=== PATIENT | male | born 1965 | race Caucasian/White ===

== ENCOUNTER 2024-03-08 13:24 | Inpatient (IN) ==
--- NOTE | 2024-03-08 13:58 | Emergency Department Note ---
Impression & Plan Non-ST elevation MT (NSTEMI), Coronary artery disease, Chest pain ED Provider Note NAME: CODEY WILSON II AGE: 58 SEX: M : 1965 ARRIVES VIA: Walk-In INFORMANT: Patient, ED PROVIDER(S): Paul Hollins DO CHIEF COMPLAINT: chest and back HPI: Patient is a 58-year-old male who presents to the ER for chest pain. He admits to previous STEMI with cath back in 1999. He notes this pain feels different. He was not feeling well this morning when he woke up and went to clean out of his car. With exertion he had worsening pain/bubble in his chest that goes through to the back. He admits to some shortness of breath. No arm or jaw pain. No belly pain. Denies any nausea, vomiting, or diarrhea. No dysuria, urgency, or frequency. He notes it is improving at this point. ADDITIONAL HISTORY OBTAINED: Per HPI Chronic Medical/Social Conditions Affecting Care: Per HPI PAST MEDICAL HISTORY:See Below PAST SURGICAL HISTORY:See Below FAMILY HISTORY:See Below SOCIAL HISTORY:See Below HOME MEDICATIONS:See Below ALLERGIES:See Below VITALS:See Below PHYSICAL EXAMINATION: GENERAL: Sitting up in bed, alert, well appearing, well nourished, no distress, non-toxic EYE EXAM: normal conjunctiva. OROPHARYNX: mucous membranes are moist LUNGS: Clear to auscultation. Normal chest wall mechanics HEART: no murmurs, S1 normal and S2 normal ABDOMEN: abdomen soft, non-tender, normo-active bowel sounds, no masses, no rebound or guarding. UPPER EXTREMITIES: upper extremities are grossly normal. LOWER EXTREMITIES: No pitting edema. Calves are equal bilaterally NEURO EXAM: Normal sensorium, cranial nerves II-XII grossly intact, normal speech, no gross weakness of arms, no gross weakness of legs. MEDICAL DECISION MAKING: Patient is a 58-year-old male who presents ER for the above-stated complaint. IV was established medicos obtained. Labs show no significant leukocytosis or anemia. INR unremarkable. BMP with LFTs bilirubin was unremarkable. Troponin was elevated. Upon arrival patient had subtle ST segment changes in the inferior leads as well as high lateral and septal. Repeat EKGs were obtained. I contacted cardiology Dr. Nicole as the patient's PCP was a [facility] doc. He recommended contacting Dr. Cantor and if unable to contact him calling a STEMI alert. I was able to contact interventional cardiology Dr. Quan who evaluate the patient at bedside. He took him emergently for catheterization. Patient was placed on a heparin drip and given a bolus. He received aspirin prior to arrival. He did receive fluids and nitro while here. He was updated bedside. Discussed case with the hospitalist for further evaluation. Consults/Care Managements Discussions: Per MDM Triage Nursing notes reviewed. Limited review of prior medical records performed Vital Signs: reviewed and remarkable for HTN Differential diagnosis: Cardiac ischemia, aortic dissection, pulmonary embolism, pneumothorax, pneumonia, pericarditis, myocarditis, esophageal rupture, GERD, cholecystitis, pancreatitis, musculoskeletal, as well as other pathologies. ER treatment provided: See below Diagnostics interpreted by me include EKG and cardiac monitoring as listed below: -Cardiac Monitoring: An order was placed for continuous cardiac monitoring. The monitor shows a rate of 80 with sinus rhythm. -ECG: Sinus rhythm rate 82 Normal axis No PVCs Nonspecific ST wave changes in the inferior leads with depressions in the high lateral leads QTc 448 EKG #2 Sinus rhythm rate of 70 Normal axis No PVCs ST segment elevations in the inferior leads with depression in the high lateral leads QTc 440 -Laboratory studies:Interpreted by me as stated above in MDM and shown below. Imaging studies: Xrays: As interpreted by me: Portable AP upright 1 view of the chest shows no focal trait CTs show: none Procedures:none Critical Care: I have personally spent 35 minutes of critical care time in the direct management of this patient. This includes bedside care, interpretation of diagnostic studies, and testing, discussion with consultants, patient, and family members, and other required patient management activities. This 35 minutes is in excess of all separately billable procedures. 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 Beliefs That Will Affect Care: None Current Living Situation: Spouse Other Information That Helps Us Care for You: No Feels Safe at Home: Yes Safety Concerns: Feels Safe At This Time Allergies Allergies Allergy/AdvReac Type Severity Reaction Status Date / Time No Known Allergies Allergy Unknown Unverified 06/16/18 15:29 Home Meds Home Medications Medication Instructions Recorded Confirmed aspirin 81 mg tablet,delayed 81 mg PO DAILY 06/16/18 06/16/18 release (Aspir-Low) citalopram 20 mg tablet (Celexa) 20 mg PO DAILY 06/16/18 06/16/18 clopidogrel 75 mg tablet (Plavix) 75 mg PO DAILY 06/16/18 06/16/18 ezetimibe 10 mg tablet (Zetia) 10 mg PO DAILY 06/16/18 06/16/18 fenofibrate micronized 134 mg 134 mg PO DAILY 06/16/18 06/16/18 capsule rosuvastatin 40 mg tablet (Crestor) 40 mg PO DAILY 06/16/18 06/16/18 sildenafil 50 mg tablet (Viagra) 50 mg PO UD PRN Unknown 06/16/18 06/16/18 Results & Data (ED) Vital Signs Vital Signs - 24 hr 03/08/24 13:33 03/08/24 13:38 03/08/24 13:38 Temperature 36.2 C L Temperature Source Skin Pulse Rate 89 Pulse Rate from SpO2 Sensor Pulse Rhythm Regular Pulse Strength Normal Respiratory Rate 18 Respiratory Effort / Characteristics Non-Labored Spontaneous Respiratory Depth Normal Blood Pressure 145/77 H Blood Pressure Mean 99 Pulse Oximetry 96 Oxygen Delivery Method Room Air Room Air Room Air Sepsis Recent Fever Within 48 Hours No Sepsis New/Unexplained Change in Mental Status N/A Sepsis Action Taken by Nursing No Action Required 03/08/24 14:15 03/08/24 14:16 03/08/24 14:18 Temperature Temperature Source Pulse Rate 84 85 84 Pulse Rate from SpO2 Sensor 83 82 Pulse Rhythm Pulse Strength Respiratory Rate 17 15 Respiratory Effort / Characteristics Respiratory Depth Blood Pressure 104/64 106/65 Blood Pressure Mean 77 78 Pulse Oximetry 93 93 Oxygen Delivery Method Sepsis Recent Fever Within 48 Hours Sepsis New/Unexplained Change in Mental Status Sepsis Action Taken by Nursing 03/08/24 14:20 03/08/24 14:21 03/08/24 14:24 Temperature Temperature Source Pulse Rate 79 67 Pulse Rate from SpO2 Sensor 81 65 Pulse Rhythm Pulse Strength Respiratory Rate 16 21 Respiratory Effort / Characteristics Respiratory Depth Blood Pressure 106/65 106/65 104/52 L Blood Pressure Mean 73 78 69 Pulse Oximetry 92 97 Oxygen Delivery Method Sepsis Recent Fever Within 48 Hours Sepsis New/Unexplained Change in Mental Status Sepsis Action Taken by Nursing 03/08/24 14:27 03/08/24 14:30 Temperature Temperature Source Pulse Rate 67 69 Pulse Rate from SpO2 Sensor 66 72 Pulse Rhythm Pulse Strength Respiratory Rate 13 15 Respiratory Effort / Characteristics Respiratory Depth Blood Pressure 98/63 L 108/76 Blood Pressure Mean 74 86 Pulse Oximetry 95 92 Oxygen Delivery Method Sepsis Recent Fever Within 48 Hours Sepsis New/Unexplained Change in Mental Status Sepsis Action Taken by Nursing Laboratory Data 03/08/24 13:46 03/08/24 13:46 Lab Results 03/08/24 03/08/24 Range/Units 13:46 15:00 WBC 7.90 (4.8-10.8) K/ul RBC 5.46 (4.70-6.10) M/uL Hgb 16.4 (14.0-18.0) g/dl Hct 47.1 (42.0-52.0) % MCV 86.3 (80.0-100.0) fL MCH 30.0 (25.0-34.0) pg MCHC 34.8 (32.0-36.0) g/dL RDW Std Deviation 40.6 (36.4-46.3) fL RDW Coeff of Nicholas 13.0 (11.5-14.5) % Plt Count 188 (130-400) K/uL MPV 10.3 (9.4-12.4) fL Immature Gran % (Auto) 0.5 % Neut % (Auto) 64.0 % Lymph % (Auto) 18.5 % [place] % (Auto) 7.3 % Eos % (Auto) 8.6 % Baso % (Auto) 1.1 % Neut # (Auto) 5.05 (1.40-6.50) K/uL Lymph # (Auto) 1.46 (1.20-3.40) K/uL [place] # (Auto) 0.58 (0.11-0.59) K/uL Eos # (Auto) 0.68 H (0.00-0.50) K/uL Baso # (Auto) 0.09 (0.00-0.20) K/uL Immature Gran # (Auto) 0.04 (0.01-0.20) K/uL PT 10.7 (9.0-12.0) Seconds INR 1.0 (0.9-1.1) APTT 25 (21-31) Seconds PTT Ratio 0.9 Sodium 140 (136-145) mmol/L Potassium 4.4 (3.5-5.1) mmol/L Chloride 106 (98-107) mmol/L Carbon Dioxide 24 (21-32) mmol/L Anion Gap 10 (3-11) BUN 21 (6-23) mg/dl Creatinine 1.26 (0.6-1.4) mg/dl Est Cr Clr Drug Dosing 75.6 ml/min eGFR 66.94 BUN/Creatinine Ratio 16.7 (10-20) Glucose 116 H (70-99(Fasting)) mg/dl Calcium 10.0 (8.6-10.3) mg/dl Total Bilirubin 0.6 (0.2-1.0) mg/dl AST 28 (13-39) U/L ALT 28 (7-52) U/L Alkaline Phosphatase 65 (34-104) U/L Troponin I High Sens 11.1 51.1 H* D (0-20) pg/ml Total Protein 7.6 (6.0-8.3) gm/dl Albumin 4.8 (3.4-5.0) gm/dl Globulin 2.8 (2.5-4.0) gm/dl Albumin/Globulin Ratio 1.7 (0.9-2) Administered Medications Discontinued Medications Aspirin (Aspirin 81 Mg Chew) 162 mg PO NOW STA Stop: 03/08/24 15:05 Last Admin: 03/08/24 17:54 Dose: 162 mg Documented By: SOLEDAD Aspirin (Aspirin 81 Mg Ectab) 81 mg PO NOW STA Stop: 03/08/24 16:37 Last Admin: 03/08/24 17:28 Dose: Not Given Documented By: SOLEDAD Fentanyl Citrate (Fentanyl Citrate Pf 100 Mcg/2 Ml Vial) Confirm Administered Dose 100 mcg .ROUTE .STK-MED ONE Stop: 03/08/24 15:10 Last Increment: 03/08/24 16:29 Dose: 75 mcg Documented By: SELENA Heparin Sodium (Porcine) (Heparin Sod (Porcine) 1000 Unit/Ml) 4,000 units IV NOW ONE Stop: 03/08/24 14:46 Last Admin: 03/08/24 14:39 Dose: 4,000 units Documented By: GERALDO Co-signed By: MARIA INES Heparin Sodium (Porcine) (Heparin (Porcine) 1000 Unit/Ml 10 Ml (Child Watch Attendant Use Only)) Confirm Administered Dose 10,000 units .ROUTE .STK-MED ONE Stop: 03/08/24 15:10 Last Admin: 03/08/24 15:48 Dose: 6,500 units Documented By: SELENA Heparin Sodium/Dextrose (Heparin Iv Adult Wt-Based Low-Dose W/ Initial Bolus Protocol) 1 each IV Q15M [facility]; Protocol Stop: 03/08/24 16:16 Last Admin: 03/08/24 14:39 Dose: 1 each Documented By: GERALDO Heparin Sodium/Sodium Chloride (Heparin In Nss Infusion 1000 Unit/500 Ml (2 U/Ml) Bag) Confirm Administered Dose 3,000 units IV .STK-MED ONE Stop: 03/08/24 15:10 Last Admin: 03/08/24 15:47 Dose: 3,000 units Documented By: JENELLE Sodium Chloride (Nss) 1,000 mls @ 999 mls/hr IV .Q1H1M ONE Stop: 03/08/24 14:57 Last Infusion: 03/08/24 17:12 Dose: Infused Documented By: Admin: 03/08/24 14:02 Dose: 999 mls/hr Documented By: GERALDO Heparin Sodium/Dextrose (Heparin Sodium/Dextrose) 25,000 units in 500 mls @ 20 mls/hr IV .Q24H [facility]; Protocol Stop: 04/07/24 14:44 Last Titration: 03/08/24 17:03 Dose: Infused Documented By: SOLEDAD Co-signed By: CHRIS Admin: 03/08/24 14:38 Dose: 1,000 units/hr, 20 mls/hr Documented By: GERALDO Co-signed By: MARIA INES Ioversol (Optiray 350) Confirm Administered Dose 1 ml .ROUTE .STK-MED ONE Stop: 03/08/24 15:12 Last Admin: 03/08/24 16:30 Dose: 280 ml Documented By: JENELLE Metoclopramide HCl (Metoclopramide Hcl Inj 5 Mg/Ml 2 Ml Vial) 10 mg IV NOW STA Stop: 03/08/24 14:35 Last Admin: 03/08/24 15:02 Dose: Not Given Documented By: GERALDO Midazolam HCl (Midazolam Hcl 1 Mg/Ml 2ml Vial) Confirm Administered Dose 2 mg .ROUTE .STK-MED ONE Stop: 03/08/24 15:10 Last Admin: 03/08/24 16:30 Dose: 2 mg Documented By: SELENA Nicardipine HCl (Nicardipine Hcl Inj 2.5 Mg/Ml 10 Ml Amp) Confirm Administered Dose 25 mg .ROUTE .ST-MED ONE Stop: 03/08/24 15:10 Last Admin: 03/08/24 15:48 Dose: 25 mg Documented By: JENELLE Nitroglycerin (Nitroglycerin Sl 0.4 Mg/Tab Tab) 0.4 mg SL NOW STA Stop: 03/08/24 13:58 Last Admin: 03/08/24 14:02 Dose: 0.4 mg Documented By: GERALDO Nitroglycerin (Nitroglycerin Sl 0.4 Mg/Tab Tab) Confirm Administered Dose 0.4 mg .ROUTE .ST-MED ONE Stop: 03/08/24 13:59 Last Admin: 03/08/24 14:02 Dose: Not Given Documented By: GERALDO Nitroglycerin/Dextrose (Nitroglycerin/D5w 100mcg/Ml 20ml Syr) Confirm Administered Dose 2,000 mcg .ROUTE .ST-MED ONE Stop: 03/08/24 15:11 Last Admin: 03/08/24 15:48 Dose: 2,000 mcg Documented By: JENELLE Ondansetron HCl (Ondansetron Inj 2 Mg/Ml 2 Ml Vial) 4 mg IV NOW STA Stop: 03/08/24 14:11 Last Admin: 03/08/24 14:13 Dose: 4 mg Documented By: GERALDO Ondansetron HCl (Ondansetron Inj 2 Mg/Ml 2 Ml Vial) Confirm Administered Dose 4 mg .ROUTE .STK-MED ONE Stop: 03/08/24 14:12 Last Admin: 03/08/24 14:14 Dose: Not Given Documented By: GERALDO Ticagrelor (Ticagrelor 90 Mg Tab) Confirm Administered Dose 180 mg .ROUTE .STK- MED ONE Stop: 03/08/24 16:27 Last Admin: 03/08/24 16:35 Dose: 180 mg Documented By: SELEAN Imaging Data Radiologist's Impression: Chest X-Ray 03/08/24 13:38 XR chest 1V portable CLINICAL HISTORY: Chest pain, nonspecific COMPARISON STUDY: Chest radiograph June 16, 2018. FINDINGS: Mild elevation of the right hemidiaphragm has slightly increased. Lungs are clear. There is no pneumothorax or pleural effusion. Cardiac size is normal. Mediastinal contours are normal. There is no evidence for pulmonary edema. IMPRESSION: No acute cardiopulmonary findings. ACT 112: Negative or not required by law. Electronically signed by: Home Wolf M.D. 03/08/2024 2:15 PM Discharge Plan Visit Data Chief Complaint: Cardiac Assessment Stated Complaint: HISTORY OF HEART DISEASE, STINT, NAUSEA ED Provider: Paul Hollins Discharge Problem: Non-ST elevation MT (NSTEMI), Coronary artery disease, Chest pain Patient Disposition: Admitted As Inpatient Discharge Instructions Interventions: ED Discharge Assessment Last Done: 03/08/24 15:08 Discharge Problem: Coronary artery disease Qualifiers: Coronary Disease-Associated Artery/Lesion type: unspecified vessel or lesion type [place] vs. transplanted heart: unspecified whether [place] or transplanted heart Associated angina: unspecified whether angina present Qualified Code(s): I 25.10 - Atherosclerotic heart disease of [place] coronary artery without angina pectoris Chest pain Qualifiers: Chest pain type: unspecified Qualified Code(s): R07.9 - Chest pain, unspecified
[2024-03-08] MEDS: NITROGLYCERIN SL 0.4 MG/TAB TAB SL STA (14:02)
[2024-03-08] MEDS: SODIUM CHLORIDE 0.9% 1,000 ML IV ONE (14:02)
[2024-03-08] MEDS: NITROGLYCERIN SL 0.4 MG/TAB TAB ONE (14:02)
[2024-03-08 14:05] LABS: Basophils # (auto) 0.09 K/uL (0.00-0.20); Basophils % (auto) 1.1 %; Eosinophils # (auto) 0.68 K/uL (0.00-0.50); Eosinophils % (auto) 8.6 %; Hematocrit (blood only) 47.1 % (42.0-52.0); Hemoglobin 16.4 g/dl (14.0-18.0); Immature Granulocytes # (auto) 0.04 K/uL (0.01-0.20); Immature Granulocytes % (auto) 0.5 %; Lymphocytes # (auto) 1.46 K/uL (1.20-3.40); Lymphocytes % (auto) 18.5 %; Mean Corpuscular Hgb Conc 34.8 g/dL (32.0-36.0); Mean Corpuscular Volume 86.3 fL (80.0-100.0); Mean Platelet Volume 10.3 fL (9.4-12.4); Monocytes # (auto) 0.58 K/uL (0.11-0.59); Monocytes % (auto) 7.3 %; Neutrophils # (auto) 5.05 K/uL (1.40-6.50); Platelet Count 188 K/uL (130-400); RDW Standard Deviation 40.6 fL (36.4-46.3); Red Blood Count 5.46 M/uL (4.70-6.10)
[2024-03-08] MEDS: ONDANSETRON INJ 2 MG/ML 2 ML VIAL IV STA (14:13)
[2024-03-08] MEDS: ONDANSETRON INJ 2 MG/ML 2 ML VIAL ONE (14:14)
--- NOTE | 2024-03-08 14:16 | XRay Report ---
XR chest 1V portable CLINICAL HISTORY: Chest pain, nonspecific COMPARISON STUDY: Chest radiograph June 16, 2018. FINDINGS: Mild elevation of the right hemidiaphragm has slightly increased. Lungs are clear. There is no pneumothorax or pleural effusion. Cardiac size is normal. Mediastinal contours are normal. There is no evidence for pulmonary edema. IMPRESSION: No acute cardiopulmonary findings. ACT 112: Negative or not required by law. Electronically signed by: Home Wolf M.D. 03/08/2024 2:15 PM
[2024-03-08 14:22] LABS: Albumin Globulin Ratio 1.7 (0.9-2); Albumin Level 4.8 gm/dl (3.4-5.0); BUN Creatinine Ratio 16.7 (10-20); Bilirubin,Total 0.6 mg/dl (0.2-1.0); Creatinine Clr Calc Pharmacy 75.6 ml/min; Globulin 2.8 gm/dl (2.5-4.0); Potassium 4.4 mmol/L (3.5-5.1); Total Protein 7.6 gm/dl (6.0-8.3)
[2024-03-08] MEDS ORDERED: Heparin IV Adult Wt-Based Low-Dose w/ INITIAL Bolus Protocol IV STA (14:25)
[2024-03-08 14:29] LABS: Troponin I High Sensitivity 11.1 pg/ml (0-20)
[2024-03-08 14:32] LABS: Partial Thromboplastin Ratio 0.9; Partial Thromboplastin Time 25 Seconds (21-31); Prothrombin Time 10.7 Seconds (9.0-12.0)
[2024-03-08] MEDS: HEPARIN SODIUM/DEXTROSE 25,000 UNITS/500 ML BAG IV SCH (14:38)
[2024-03-08] MEDS: HEPARIN SOD (PORCINE) 1000 UNIT/ML IV ONE (14:39)
[2024-03-08] MEDS: Heparin IV Adult Wt-Based Low-Dose w/ INITIAL Bolus Protocol IV SCH (14:39)
[2024-03-08] MEDS ORDERED: HEPARIN SOD (PORCINE) 1000 UNIT/ML IV ONE (14:40)
[2024-03-08] MEDS: METOCLOPRAMIDE HCL INJ 5 MG/ML 2 ML VIAL IV STA (15:02)
--- NOTE | 2024-03-08 15:16 | History & Physical Report ---
Date of Service March 08, 2024 Assessment & Plan (1) Non-ST elevation FL (NSTEMI): Plan: ST elevations in inferior leads < 1mm with reciprocal changes ASA 162mg PO given at home, addition 162mg PO ordered IV heparin low dose with bolus Patient will be taken for emergent cardiac catheterization (2) Anxiety: Plan: Continue citalopram Plan VTE Prophylaxis - heparin Diet - NPO Disposition - admit to PCU as discussed with Dr Cantor History of Present Illness Chief Complaint: Upper back and chest pain Primary Care Provider: Kalpesh Fong MD Harshal Verduzco is a 58 year old male who presents to the ER with upper back pain and chest pain. Symptoms started this morning with a general feeling something was not right. After he visited his father at [facility] it started to get worse especially when he went to clean his car. At that time he started having diaphoresis, nausea and dry heaving and had to sit down. No shortness of breath but he reports his lungs just didn't feel right. Due to the severity of his symptoms and after putting all the pieces together he was concerned about a heart attack therefore called his to bring him to the ER. Allergies Allergy/AdvReac Type Severity Reaction Status Date / Time No Known Allergies Allergy Unknown Unverified 06/16/18 15:29 Home Medications Medication Instructions Recorded Confirmed Type aspirin 81 mg tablet,delayed 81 mg PO DAILY 06/16/18 03/08/24 History release (Aspir-Low) citalopram 20 mg tablet (Celexa) 20 mg PO DAILY 06/16/18 03/08/24 History ezetimibe 10 mg tablet (Zetia) 10 mg PO DAILY 06/16/18 03/08/24 History rosuvastatin 40 mg tablet (Crestor) 40 mg PO DAILY 06/16/18 03/08/24 History Past Med/Surg History Problem List (Updated 03/09/24 @ 00:37 by MICHAEL Contreras) Ventricular tachycardia Chest pain (Acute) Atherogenic dyslipidemia Coronary artery disease (Acute) Non-ST elevation FL (NSTEMI) (Acute) Medical History (Updated 03/09/24 @ 00:37 by MICHAEL Contreras) Anxiety IBS (irritable bowel syndrome) Surgical History Status post coronary artery stent placement Family History Other Family history non-contributory Social History Smoking Status: Never smoker Hx Alcohol Use: No Hx Substance Use: No Preferred Language: Frisian Communication Ability: Effective 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 Beliefs That Will Affect Care: None Current Living Situation: Spouse Other Information That Helps Us Care for You: No Feels Safe at Home: Yes Safety Concerns: Feels Safe At This Time Review of Systems Review of Systems: All systems reviewed & are unremarkable except as noted in HPI & below Physical Exam Constitutional: WD/WN, vitals as above ENMT: external ear and nose normal, oropharynx normal Respiratory: normal respiratory effort, lungs clear to auscultation Cardiovascular: RRR, no murmur, no edema Gastrointestinal (Abdomen): normal bowel sounds, soft, nontender, no hepatosplenomegaly Musculoskeletal: no cyanosis or clubbing, extremities motor strength 5/5 Skin: no rashes, warm and dry Neurologic: moves all extremities and awake; not confused Psychiatric: A+Ox3, euthymic affect Results & Data Results & Data Vital Signs (Past 12 Hours) Vital Signs Temp Pulse Resp BP Pulse Ox O2 Del Method 03/08/24 14:30 69 15 108/76 92 03/08/24 14:27 67 13 98/63 L 95 03/08/24 14:24 67 21 104/52 L 97 03/08/24 14:21 79 16 106/65 92 03/08/24 14:20 106/65 03/08/24 14:18 84 15 106/65 93 03/08/24 14:16 85 03/08/24 14:15 84 17 104/64 93 03/08/24 13:38 Room Air 03/08/24 13:38 Room Air 03/08/24 13:33 36.2 C L 89 18 145/77 H 96 Room Air Laboratory Results Abnormal lab results 03/08/24 03/08/24 03/08/24 Range/Units 13:46 15:00 15:43 Eos # (Auto) 0.68 H (0.00-0.50) K/uL Activ Coag Time Kaolin 159 H (94-140) SECONDS Glucose 116 H (70-99(Fasting)) mg/dl Troponin I High Sens 51.1 H* D (0-20) pg/ml 03/08/24 Range/Units 16:12 Eos # (Auto) (0.00-0.50) K/uL Activ Coag Time Kaolin 275 H (94-140) SECONDS Glucose (70-99(Fasting)) mg/dl Troponin I High Sens (0-20) pg/ml Diagnostic Findings XR chest 1V portable CLINICAL HISTORY: Chest pain, nonspecific COMPARISON STUDY: Chest radiograph June 16, 2018. FINDINGS: Mild elevation of the right hemidiaphragm has slightly increased. Lungs are clear. There is no pneumothorax or pleural effusion. Cardiac size is normal. Mediastinal contours are normal. There is no evidence for pulmonary edema. IMPRESSION: No acute cardiopulmonary findings. Medications Administered ER Medications Given: Normal saline 1L bolus Nitroglycerin 0.4mg SL Ondansetron 4mg IV Heparin IV low dose with bolus ECG Rate (beats per minute): 70 Rhythm: normal sinus Findings: + nonspecific-ST abn (ST elevations in inferior leads < 1mm with r eciprocal changes) Comparison ECG Date: from (Jun 23, 2011) Change: the following changes noted (ischemic changes are new) Code Status & VTE Plan Code Status Full VTE Prophylaxis Plan VTE Prophylaxis will be ordered: Yes PG Care Time/CCT Total # of Minutes Spent Total Time Spent with Patient: Total time spent is greater than 50% in coordination of care (as documented) at patient's floor/unit and/or counseling patient: Coding Level of Care Code 91839 INT INP/OBS CARE 3/75MIN Diagnoses Non-ST elevation FL (NSTEMI) I21.4 Anxiety F41.9
[2024-03-08] MEDS: HEPARIN (PORCINE) 1000 UNIT/ML 10 ML (CATH LAB USE ONLY) ONE (15:48)
[2024-03-08] MEDS: niCARdipine HCL INJ 2.5 MG/ML 10 ML AMP ONE (15:48)
[2024-03-08] MEDS: NITROGLYCERIN/D5W 100MCG/ML 20ML SYR ONE (15:48)
[2024-03-08 15:53] LABS: Troponin I High Sensitivity 51.1 pg/ml (0-20)
[2024-03-08] MEDS: fentaNYL citrate PF 100 MCG/2 ML VIAL ONE (16:29)
[2024-03-08] MEDS: OPTIRAY 350 ONE (16:30)
[2024-03-08] MEDS: MIDAZOLAM HCL 1 MG/ML 2ML VIAL ONE (16:30)
--- NOTE | 2024-03-08 16:33 | Pre Anesthesia Assessment ---
Date of Service March 08, 2024 Pre Sedation Assessment Vital Signs Temp Pulse Resp BP Pulse Ox O2 Del Method 03/08/24 14:30 69 15 108/76 92 03/08/24 14:27 67 13 98/63 L 95 03/08/24 14:24 67 21 104/52 L 97 03/08/24 14:21 79 16 106/65 92 03/08/24 14:20 106/65 03/08/24 14:18 84 15 106/65 93 03/08/24 14:16 85 03/08/24 14:15 84 17 104/64 93 03/08/24 13:38 Room Air 03/08/24 13:38 Room Air 03/08/24 13:33 36.2 C L 89 18 145/77 H 96 Room Air Cardiovascular RRR, no murmur, no edema Respiratory normal respiratory effort, lungs clear to auscultation Pre-Sedation Airway Assessment Smoking Status: Never smoker Mallampati 2 ASA 3 Notes The planned sedation has been discussed with the patient. Informed Consent was obtained. I have identified the patient, determined the appropriateness of sedation and have assessed the patient immediately prior to the procedure. All medicine(s) and interventions are by my order.
[2024-03-08] MEDS: TICAGRELOR 90 MG TAB ONE (16:35)
--- NOTE | 2024-03-08 16:44 | Post Anesthesia Assessment ---
Date of Service March 08, 2024 Post Sedation Assessment Vital Signs Temp Pulse Resp BP Pulse Ox O2 Del Method 03/08/24 14:30 69 15 108/76 92 03/08/24 14:27 67 13 98/63 L 95 03/08/24 14:24 67 21 104/52 L 97 03/08/24 14:21 79 16 106/65 92 03/08/24 14:20 106/65 03/08/24 14:18 84 15 106/65 93 03/08/24 14:16 85 03/08/24 14:15 84 17 104/64 93 03/08/24 13:38 Room Air 03/08/24 13:38 Room Air 03/08/24 13:33 36.2 C L 89 18 145/77 H 96 Room Air Recovery Score Activity: Moves 4 extremities Respiration: Deep Breath/Cough Circulation: +/-20% PreAnes Value Consciousness: Fully Awake Oxygen Saturation: > 92% On Room Air Discharge Sedation Level of Care: Fast Track Phase II Post Sedation Plan On clinical assessment, the patient appears to have tolerated the sedation without complications. Patient is recovering as anticipated. Patient will continue to be monitored by nursing and may be discharged when sedation discharge criteria are met per below protocol. Upon Completions of procedure up to 15 minutes continue every 5 minute vital signs and the P.A.R. score; then discharge to a Phase I or Fast Track to Phase II per the following guidelines: * Discharge Patient to appropriate Phase II area if PAR is 8 or greater or return to pre- procedure baseline. The post - procedure orders will be as directed. * If PAR score is less than 8 or not return to pre-procedure baseline then patient will follow Phase I monitoring till PAR is reached for Phase II. The Phase I may be done in procedure room or may call to secure a Phase I area. * If naloxone or flumazenil are used for reversal, hold in Phase I for continued monitoring from when last reversal dose was given for a minimum of 60 minutes or longer pending the nurse and/or physician discretion of patient condition before discharge to Phase II. Please call the Sedation Physician to re-evaluate and complete post-note for discharge to Phase II area. Do NOT discharge from procedure sedation or Phase 1 until post- sedation evaluation note is complete by procedure /sedation MD Sedation Discharge Instructions to be given to the patient at discharge to home. [facility] Procedure Codes (Charges) Indication for Procedure Indication for procedure: NSTEMI Sedation/Anesthesia Procedure 1: Sedation/Anesthesia: 15047 Mod Sedation by the same physician;Init15 Min Child Age 5 & Up (Initial 15-minute, start time 1523) Total Sedation Time (minutes): 59 Procedure 2: Sedation/Anesthesia: 77167 Mod Sedation by the same physician; Ea [id number] Minutes (Additional 44 min, end time 1622) Total Sedation Time (minutes): 59
[2024-03-08] MEDS ORDERED: ACETAMINOPHEN 325 MG TAB PO PRN (17:07)
[2024-03-08] MEDS: ASPIRIN 81 MG ECTAB PO STA (17:28)
--- NOTE | 2024-03-08 17:46 | Cardiac Catheterization ---
ACC Data: [employer] Pilot Cardiac Status Clinical evaluation leading to the procedure CAD Presenation: Non STEMI Anginal Classification: CCS IV Heart Failure: No Cardiogenic Shock within 24 Hours: No Cardiac Arrest within 24 Hours: No Imaging Studies Past 6 Months: No Stress Studies Past 6 Months: No STEMI OR Non-STEMI Symptom Onset Date: 03/08/24 Symptom Onset Time: 13:00 Thrombolytics: No Coronary Anatomy Dominant: Right Left Main (% Stenosis): Distal (20%) LAD (% Stenosis): Proximal (In-stent restenosis 95%), Mid (95%) and Distal (Focal 50%) D1 (% Stenosis): Normal Circumflex (% Stenosis): Mid (40%) OM1 (% Stenosis): Normal OM2 (% Stenosis): Normal OM3 (% Stenosis): Normal L PL1 (% Stenosis): Normal RCA (% Stenosis): Proximal (Calcified less than 20%) and Distal (Focal 80 to 90% before bifurcation) R PDA (% Stenosis): Normal R PL1 (% Stenosis): Ostial (100%) Diagnostic Physicians Name: Ranjith Cantor MD, PhD Closure Device Percutaneous Entry Location: Radial Closure Device: Radial Band Recommendations: Medical Therapy and/or Counseling and PCI without planned CABG PCI Indication: PCI for high risk Non-DARIO Lesion Segment Name: Proximal to mid LAD Culprit Artery: Yes Stenosis Prior to Rx (%): 95% Chronic Total Occlusion: No Pre-Procedure KAMINI Flow: 2 Previously Treated Lesion: Yes Lesion Complexity: High/C Lesion Length (mm): 42 Thrombus Present: No Bifurcation Lesion: Yes Guidewire Across Lesion: Yes Intraprocedure Events Significant Disection: No Perforation: No Cardiac Cath Procedure Full Procedure Date March 08, 2024 Pre-Procedure Diagnosis Pre-Procedure Diagnosis: Non STEMI AUC Score AUC Score: 07 Post-Procedure Diagnosis Post-Procedure Diagnosis: Severe CAD and Successful PCI Procedure(s) Performed Procedure(s) Performed: Coronary Angiography, Drug Eluting Stent and Procedure (Cutting Balloon atherectomy) Field Producer Ranjith Cantor MD, PhD Estimated Blood Loss Estimated Blood Loss: 10 cc Medication(s) Medication(s): Fentanyl, Heparin, Lidocaine 1%, Nicardipine, Nitroglycerin and Versed Summary of Findings Brief description: Patient was brought to the cardiac catheterization suite where he was shaved and prepped in a sterile fashion. Sedated using IV Versed and fentanyl. Soft tissues of the right wrist were anesthetized using 2 mL of 1% Xylocaine. Right radial artery was accessed with a modified Seldinger technique and a 6 Prydeinig radial artery glide sheath was placed. Patient was provided anticoagulation with IV heparin and antispasmodics including nicardipine and nitroglycerin. All catheters were advanced and exchanged over a 0.035 J-tip wire. Left coronary angiography was completed in orthogonal views with a 5 Prydeinig JL 3.5 diagnostic catheter. Right coronary angiography was completed in orthogonal views with a 5 Prydeinig JR4 diagnostic catheter. Diagnostic catheters were removed and we proceeded with PCI. A 6 Prydeinig EBU 3.5 guide catheter was used to engage the left main coronary. BMW reversal guidewire was advanced under fluoroscopic guidance and with some difficulty was eventually passed to the distal LAD. The lesions in the proximal and mid LAD were predilated using a 2.0 x 15 mm NC Jas balloon at 18 chano 3 times. Cutting balloon atherectomy within the stented portion was performed using a 2.5 x 10 mm [place] cutting balloon inflated multiple times up to 7 chano. A 2.5 x 18 mm Max drug-eluting stent was advanced over the guidewire and positioned with its proximal edge at the distal edge of the original LAD stent. Here it was inflated up to 12 chano. A second inflation with part of the balloon in the old stent was again performed up to 12 chano. A 2.75 x 33 mm [place] drug-eluting stent was then advanced and positioned with its distal edge just overlap with the proximal edge of the first stent and covering the entire previously stented proximal segment. The proximal edge was just distal to the ostium of the LAD. Stent was then deployed initially at 16 chano. The 2.75 stent was then postdilated with a 3.0 NC Jas balloon at 14 chano distally and 18 chano twice in the proximal and mid segment. Balloon was removed and powder blender angiography was performed. Finally, the proximal portion of the stent was postdilated further with the NC Jas 3.0 balloon up to 20 chano. The balloon was then removed. Guidewire was removed and final angiographic evaluation was performed in orthogonal views. The guide catheter was removed. Radial artery sheath was removed. Hemostasis was obtained using the TR band. Patient was hemodynamically stable and asymptomatic. He was then admitted for further workup and management. This ended the case. Coronary angiography findings: TBR-sitdo-yazfbgc vessel bifurcating into LAD and circumflex. There is distal disease of up to 20%. VLR-xrvur-ykuhyka and transapical vessel. There is a previously placed stent extending throughout the proximal segment and ending at about the ostium of the large branching diagonal. The diagonal has mild diffuse plaques. The in-stent restenosis appears to be 90 to 95%. The disease continues beyond the edge of the stent into the mid segment where there is 95% stenosis. The distal LAD has focal 50% stenosis but otherwise only mild scattered luminal irregularities. CVj-txgmt-feccywe and nondominant. Travels in the AV groove. First OM is small in the proximal AV groove vessel has no disease. The mid vessel has a long eccentric up to 40% stenosis and there it provides a small OM 2. Immediately following this is a large branching OM 3 with mild luminal irregularities. The distal AV groove vessel continues as it tapers and terminates with a small posterolateral branch after providing an atrial branch. RCA-this is large caliber and dominant. Proximally there is some mild to moderate calcification and less than 20% stenosis. The mid vessel has luminal irregularities. Distally there is an 80 to 90% mildly calcified stenosis at the bifurcation. The vessel bifurcates into a large PDA which has luminal irregularities and a large multi branching posterolateral. The posterolateral has ostial 100% stenosis in the branches fill via right to right collateralization. PCI of LAD: Implantation of 2 overlapped drug-eluting stents covering prior proximal LAD in- stent restenosis and additional mid LAD disease. 0% residual stenosis post PCI No evidence of dissection or perforation post PCI KAMINI-3 flow post PCI Summary: 1. Patient has severe two-vessel coronary disease involving the LAD and the right posterolateral branch. 2. Successful PCI of the LAD with implantation of 2 drug-eluting stents following Cutting Balloon atherectomy. 3. Patient will be on dual antiplatelet therapy for at least 1 to 2 years but preferably indefinitely. 4. Patient will be initiated on guideline directed medical therapy for secondary prevention of coronary disease. This will include the low-dose aspirin, high intensity statin therapy, beta-alisha, plus or minus ARIANA inhibitor/ARB. Hemodynamics Rest Ao:: 85/66 mmHg Final Ao: 105/72 mmHg LV: Not performed Recommendations Recommendations: Medical Therapy and/or Counseling and PCI without planned CABG Radiation Exposure (mGy) 2607 mGy, fluoroscopy time 17.7 minutes Contrast (mls) 260 mL Anesthesia 2 mg Versed, 75 mcg fentanyl IV. Start time 1523, end time 1622 Procedural Complication(s) None Disposition PCU I attest to the content of the Intraoperative Record and any orders documented therein. Any exceptions are noted below. [facility] Card Cath Procedure Codes Cardiac Catheterization Procedure 1: Cardiovascular Cath Procedures: 98378 Coronaries Moderate Sedation Procedure 1: Sedation/Anesthesia: 05741 Mod Sedation by the same physician;Init15 Min Child Age 5 & Up (Initial 15 minutes, start time 152) Procedure 2: Sedation/Anesthesia: 78316 Mod Sedation by the same physician; Ea [id number] Minutes (Additional 44 minutes, end time 1622) Stenting Procedure 1: Cardiovascular Stent Procedures: 73793 Perc transluminal revascularization of acute sub/total occl, aMI PG Care Time/CCT Total # of Minutes Spent Total Time Spent with Patient: Total time spent is greater than 50% in coordination of care (as documented) at patient's floor/unit and/or counseling patient:
[2024-03-08] MEDS: ASPIRIN 81 MG CHEW PO STA (17:54)
--- NOTE | 2024-03-08 18:01 | Cardiology Consultation ---
Date of Consultation March 08, 2024 Assessment & Plan (1) Non-ST elevation MT (NSTEMI): Secondary to in-stent restenosis and progressive coronary disease. Patient underwent successful PCI of the LAD. Severe residual disease in the right posterolateral branch not amenable to PCI. He will remain on dual antiplatelet therapy for at least 1 to 2 years but preferably indefinitely. Guideline directed medical therapy was initiated with low-dose aspirin, rosuvastatin 40 mg daily, and metoprolol to tartrate 12.5 mg p.o. twice daily. He tends to run a low blood pressure so we are starting at a very low dose. (2) Coronary artery disease: Severe residual posterolateral branch disease as well as mild nonocclusive disease elsewhere as described in the cath report. In addition to guideline directed medical therapy for secondary prevention I highly recommend that he participate in cardiac rehab. We are obtaining an echocardiogram to make sure that he has preserved EF and no significant valvular pathology. (3) Atherogenic dyslipidemia: He is high risk. High intensity statin therapy ongoing with rosuvastatin 40 mg daily and Zetia [address] Castaneda was notified of the patient's admission. Patient will continue to follow with [facility] cardiology at discharge unless he changes his mind. I will be available over the weekend if needed. History of Present Illness Reason for Consultation: Non-ST elevation MT Attending Physician: Lit Coello MD History of Present Illness 58-year-old gentleman with a history of prior LAD stenting ([place] stent) performed at the [facility] in the early . He has followed intermittently with Dr. Castaneda of [facility] cardiology but admits that lately he has not seen him because of other factors in his personal life which have occupy his time. He notes onset of chest pain with exertion and shortness of breath while doing physical labor today. He states he has had similar symptoms to a lesser severity recently. Much of the pain he feels is in his back but he does also feel some anterior chest pain and shortness of breath. He states this is different than his prior angina. However, when he did not feel well after resting today he decided to come to the emergency department for further evaluation. He he felt that something "just was not right". He is EKG did not demonstrate some concave up ST elevations not meeting criteria for acute ST elevation MT. I was asked to see him. He had 2 EKGs today which were not significantly changed from 1 another although they seem slightly different than an old EKG from several years ago. He continued with 3 out of 10 chest discomfort predominantly back pain. After discussion with him we decided to proceed for definitive evaluation by coronary angiography. The patient had been provided heparin and nitroglycerin in the emergency department. He received aspirin on his way to the hospital. He was accompanied by his . Coronary angiography revealed severe in-stent restenosis of the proximal LAD as well as severe mid LAD stenosis outside of the stented area. He also had what appeared to be a chronic total occlusion of the ostial right PLB which filled via right to right collateralization. Decision was made for him to undergo PCI of the LAD. He had Cutting Balloon atherectomy in the stented segment and then implantation of 2 drug-eluting stents covering the mid LAD and proximal in-stent restenosis with the proximal edge just distal to the ostium of the LAD. Good angiographic results. He is now without any symptoms. Denies syncope, near syncope, orthopnea, PND, racing heartbeat, palpitations, or edema leading up to this admission. Allergies Allergy/AdvReac Type Severity Reaction Status Date / Time No Known Allergies Allergy Unknown Unverified 06/16/18 15:29 Home Medications Medication Instructions Recorded Confirmed Type aspirin 81 mg tablet,delayed 81 mg PO DAILY 06/16/18 06/16/18 History release (Aspir-Low) citalopram 20 mg tablet (Celexa) 20 mg PO DAILY 06/16/18 06/16/18 History clopidogrel 75 mg tablet (Plavix) 75 mg PO DAILY 06/16/18 06/16/18 History ezetimibe 10 mg tablet (Zetia) 10 mg PO DAILY 06/16/18 06/16/18 History fenofibrate micronized 134 mg 134 mg PO DAILY 06/16/18 06/16/18 History capsule rosuvastatin 40 mg tablet (Crestor) 40 mg PO DAILY 06/16/18 06/16/18 History sildenafil 50 mg tablet (Viagra) 50 mg PO UD PRN Unknown 06/16/18 06/16/18 History Patient History Medical History IBS (irritable bowel syndrome) Surgical History Status post coronary artery stent placement Family History Other Family history non-contributory Social History Smoking Status: Never smoker Hx Alcohol Use: No Hx Substance Use: No Preferred Language: Haitian Communication Ability: Effective Aerosol Supervisor Required: No Beliefs That Will Affect Care: None Current Living Situation: Spouse Other Information That Helps Us Care for You: No Feels Safe at Home: Yes Safety Concerns: Feels Safe At This Time Review of Systems Review of Systems: Negative except as per HPI Physical Exam Constitutional: WD/WN, vitals as above Eyes: Extraocular muscles intact. Sclera are anicteric. ENMT: [place] is pink moist and intact Neck: No JVD Respiratory: Clear to auscultation bilaterally. No wheezing, rhonchi, or rales. Cardiovascular: Regular rate and rhythm. S4 gallop. No edema. Musculoskeletal: no cyanosis or clubbing, extremities motor strength 5/5 Neurologic: Cognition intact. Speech is fluent. No focal deficits. Psychiatric: A+Ox3, euthymic affect Results & Data Vital Signs (Past 12 Hours) Vital Signs Temp Pulse Pulse Resp BP BP Pulse Ox 03/08/24 17:41 81 17 127/78 95 03/08/24 17:19 80 16 111/78 98 03/08/24 17:13 79 17 119/80 98 03/08/24 17:01 78 16 116/76 98 03/08/24 16:49 36.3 C L 75 18 111/74 97 03/08/24 14:30 69 15 108/76 92 03/08/24 14:27 67 13 98/63 L 95 03/08/24 14:24 67 21 104/52 L 97 03/08/24 14:21 79 16 106/65 92 03/08/24 14:20 106/65 03/08/24 14:18 84 15 106/65 93 03/08/24 14:16 85 03/08/24 14:15 84 17 104/64 93 03/08/24 13:38 03/08/24 13:38 03/08/24 13:33 36.2 C L 89 18 145/77 H 96 O2 Del Method 03/08/24 17:41 Room Air 03/08/24 17:19 Room Air 03/08/24 17:13 Room Air 03/08/24 17:01 Room Air 03/08/24 16:49 Room Air 03/08/24 14:30 03/08/24 14:27 03/08/24 14:24 03/08/24 14:21 03/08/24 14:20 03/08/24 14:18 03/08/24 14:16 03/08/24 14:15 03/08/24 13:38 Room Air 03/08/24 13:38 Room Air 03/08/24 13:33 Room Air PG Care Time/CCT Total # of Minutes Spent Total Time Spent with Patient: Total time spent is greater than 50% in coordination of care (as documented) at patient's floor/unit and/or counseling patient: Coding Level of Care Code 79574 IN/OBS CONSULT LVL 4,60M Diagnoses Non-ST elevation MT (NSTEMI) I21.4 Coronary artery disease I25.10 Atherogenic dyslipidemia E78.5
[2024-03-08] MEDS ORDERED: 0.2 MICRON FILTER SET 1 EACH IV STA (18:35)
[2024-03-08] MEDS ORDERED: AMIODARONE IV BOLUS & DRIP IV STA (18:35)
[2024-03-08] MEDS ORDERED: STAT IV Infusion **Titration per Protocol STA (18:35)
--- NOTE | 2024-03-08 18:44 | Electrocardiogram Report ---
Test Reason : Blood Pressure : */* mmHG Vent. Rate : 82 BPM Atrial Rate : 82 BPM P-R Int : 150 ms QRS Dur : 86 ms QT Int : 384 ms P-R-T Axes : 64 75 87 degrees QTcB Int : 448 ms Normal sinus rhythm Normal ECG When compared with ECG of 16-Jun-2018 15:08, No significant change was found Confirmed by Stevenson Nicole ([id number]) on 03/08/2024 6:44:05 PM Referred By: REFERRED SELF Confirmed By: Stevenson Nicole
--- NOTE | 2024-03-08 18:44 | Electrocardiogram Report ---
Test Reason : Blood Pressure : */* mmHG Vent. Rate : 70 BPM Atrial Rate : 70 BPM P-R Int : 158 ms QRS Dur : 88 ms QT Int : 408 ms P-R-T Axes : 61 63 72 degrees QTcB Int : 440 ms Normal sinus rhythm Nonspecific ST abnormality Abnormal ECG When compared with ECG of 08-Mar-2024 13:40, (unconfirmed) No significant change was found Confirmed by Stevenson Nicole ([id number]) on 03/08/2024 6:44:13 PM Referred By: REFERRED SELF Confirmed By: Stevenson Nicole
--- NOTE | 2024-03-08 18:47 | Electrocardiogram Report ---
Test Reason : Blood Pressure : */* mmHG Vent. Rate : 85 BPM Atrial Rate : 85 BPM P-R Int : 158 ms QRS Dur : 90 ms QT Int : 382 ms P-R-T Axes : 63 71 74 degrees QTcB Int : 454 ms Normal sinus rhythm Nonspecific ST abnormality When compared with ECG of 08-Mar-2024 13:50, (unconfirmed) No significant change was found Confirmed by Stevenson Nicole ([id number]) on 03/08/2024 6:47:05 PM Referred By: REFERRED SELF Confirmed By: Stevenson Nicole
[2024-03-08] MEDS: AMIODARONE / D5W 150 MG/100 ML BAG IV STA (19:01)
[2024-03-08] MEDS: AMIODARONE / D5W 360 MG/200 ML BAG IV ONE (19:19)
[2024-03-08] MEDS: METOPROLOL TARTRATE 25 MG TAB PO SCH (20:14)
[2024-03-08] MEDS: TICAGRELOR 90 MG TAB PO SCH (20:14)
--- NOTE | 2024-03-08 22:06 | Critical Care Consultation ---
Date of Consultation March 08, 2024 Assessment & Plan (1) Non-ST elevation [place] (NSTEMI): Patient initially presented with non-ST elevation [place] and chest pain. Now post cardiac cath where he received 2 drug-eluting stents covering the mid LAD and proximal in-stent restenosis. - Initially admitted to PCU now transferred to ICU following episodes of V. tach - Trending troponin for peak - Follow-up TTE - Continue Brilinta, ASA, MTP, Statin, Zetia (2) Ventricular tachycardia: Patient noted to have episodes of ventricular tachycardia with longest lasting about 30 seconds. No EKG to confirm But multiple rhythm strips suspicious for V. tach. - Continue amiodarone drip - Transferred to ICU for closer monitoring overnight - Maximize electrolytes -Continue beta-alisha -Appreciate cardiology recommendations (3) Coronary artery disease: Continue Brilinta, ASA (4) Atherogenic dyslipidemia: Continue statin History of Present Illness Attending Physician: Lit Coello MD History of Present Illness Patient is a 58-year-old male with past medical history of previous [place] with prior stent to LAD in the early . He presented to the emergency department today With complaints of chest pain with physical labor. Patient became diaphoretic while cleaning out his car.Patient's EKG did not demonstrate ST elevations meeting criteria for acute ST elevation [place] however patient continued to have persistent chest pain rated 3 out of 10 in the emergency department patient was then emergently taken to the cardiac Capability Lead for a coronary angiography. While in the Capability Lead patient underwent PCI of the LADx2, And was admitted to PCU for further monitoring. This evening patient demonstrated what was interpreted as ventricular tachycardia on the monitor and was started on amiodarone drip. He was also given magnesium repletion, but despite interventions continued to have episodes of ventricular tachycardia with the longest being about 30 seconds. Case was discussed between interventional cardiology and hospitalist, and patient was transferred to the ICU for monitoring overnight. On arrival to the ICU the patient is alert and oriented and is no longer having chest pain, shortness of breath, diaphoresis or other cardiac symptoms. He is sinus rhythm on monitor and hemodynamically stable and currently maintaining oxygen saturations on room air. He denies any other symptoms such as recent illness or fevers, cough or congestion, headaches or dizziness, syncopal events, swelling in hands or feet, nausea vomiting or diarrhea, abdominal pain,. Allergies Allergy/AdvReac Type Severity Reaction Status Date / Time No Known Allergies Allergy Unknown Unverified 06/16/18 15:29 Home Medications Medication Instructions Recorded Confirmed Type aspirin 81 mg tablet,delayed 81 mg PO DAILY 06/16/18 03/08/24 History release (Aspir-Low) citalopram 20 mg tablet (Celexa) 20 mg PO DAILY 06/16/18 03/08/24 History ezetimibe 10 mg tablet (Zetia) 10 mg PO DAILY 06/16/18 03/08/24 History rosuvastatin 40 mg tablet (Crestor) 40 mg PO DAILY 06/16/18 03/08/24 History Patient History Medical History (Updated 03/09/24 @ 00:37 by MICHAEL Contreras) Anxiety IBS (irritable bowel syndrome) Surgical History Status post coronary artery stent placement Family History Other Family history non-contributory Social History Smoking Status: Never smoker Hx Alcohol Use: No Hx Substance Use: No Preferred Language: Greek Communication Ability: Effective International Travel Consultant Required: No Beliefs That Will Affect Care: None Current Living Situation: Spouse Other Information That Helps Us Care for You: No Feels Safe at Home: Yes Safety Concerns: Feels Safe At This Time Review of Systems Review of Systems: All systems reviewed & are unremarkable except as noted in HPI & below Physical Exam Constitutional: cooperative and comfortable; no acute distress Eyes: PERRL, conjunctivae normal, anicteric sclerae ENMT: external ear and nose normal, oropharynx normal Neck: trachea midline, no thyromegaly Respiratory: normal respiratory effort, lungs clear to auscultation Cardiovascular: RRR, no murmur, no edema Heart Sounds: normal S1 and normal S2; no murmur Extremities: no edema Gastrointestinal (Abdomen): normal bowel sounds, soft, nontender, no hepatosplenomegaly Musculoskeletal: no cyanosis or clubbing, extremities motor strength 5/5 Skin: no rashes, warm and dry Neurologic: PERRL, EOMI, accommodation nl, no face palsy, no dysarthria Psychiatric: A+Ox3, euthymic affect Results & Data Results & Data Vital Signs (Past 12 Hours) Vital Signs Temp Pulse Pulse Resp BP BP Pulse Ox 03/08/24 21:19 36.9 C 79 18 165/92 H 95 03/08/24 20:19 96 H 18 144/77 H 99 03/08/24 19:19 85 12 118/78 96 03/08/24 18:19 84 17 122/90 98 03/08/24 17:49 79 19 125/79 95 03/08/24 17:41 81 17 127/78 95 03/08/24 17:19 80 16 111/78 98 03/08/24 17:13 79 17 119/80 98 03/08/24 17:01 78 16 116/76 98 03/08/24 16:49 36.3 C L 75 18 111/74 97 03/08/24 14:30 69 15 108/76 92 03/08/24 14:27 67 13 98/63 L 95 03/08/24 14:24 67 21 104/52 L 97 03/08/24 14:21 79 16 106/65 92 03/08/24 14:20 106/65 03/08/24 14:18 84 15 106/65 93 03/08/24 14:16 85 03/08/24 14:15 84 17 104/64 93 03/08/24 13:38 03/08/24 13:38 03/08/24 13:33 36.2 C L 89 18 145/77 H 96 O2 Del Method 03/08/24 21:19 Room Air 03/08/24 20:19 Room Air 03/08/24 19:19 Room Air 03/08/24 18:19 Room Air 03/08/24 17:49 Room Air 03/08/24 17:41 Room Air 03/08/24 17:19 Room Air 03/08/24 17:13 Room Air 03/08/24 17:01 Room Air 03/08/24 16:49 Room Air 03/08/24 14:30 03/08/24 14:27 03/08/24 14:24 03/08/24 14:21 03/08/24 14:20 03/08/24 14:18 03/08/24 14:16 03/08/24 14:15 03/08/24 13:38 Room Air 03/08/24 13:38 Room Air 03/08/24 13:33 Room Air Coding Level of Care Code 73596 IN/OBS CONSULT LVL 2,35M Diagnoses Non-ST elevation [place] (NSTEMI) I21.4 Ventricular tachycardia I47.20 Coronary artery disease I25.10 Associated angina: unspecified whether angina present Coronary Disease-Associated Artery/Lesion type: unspecified vessel or lesi on type [place] vs. transplanted heart: unspecified whether [place] or transplanted heart Atherogenic dyslipidemia E78.5 Time Spent (min) 42 (3) Coronary artery disease Associated angina: unspecified whether angina present Coronary Disease- Associated Artery/Lesion type: unspecified vessel or lesion type [place] vs. transplanted heart: unspecified whether [place] or transplanted heart Qualified Code(s): I25.10 - Atherosclerotic heart disease of [place] coronary artery without angina pectoris
[2024-03-09] MEDS: AMIODARONE / D5W 360 MG/200 ML BAG IV SCH (01:00)
[2024-03-09 04:35] LABS: Basophils # (auto) 0.05 K/uL (0.00-0.20); Basophils % (auto) 0.6 %; Eosinophils # (auto) 0.55 K/uL (0.00-0.50); Eosinophils % (auto) 6.2 %; Hematocrit (blood only) 43.1 % (42.0-52.0); Hemoglobin 14.4 g/dl (14.0-18.0); Immature Granulocytes # (auto) 0.03 K/uL (0.01-0.20); Immature Granulocytes % (auto) 0.3 %; Lymphocytes % (auto) 18.2 %; Mean Corpuscular Hemoglobin 29.3 pg (25.0-34.0); Mean Corpuscular Hgb Conc 33.4 g/dL (32.0-36.0); Mean Corpuscular Volume 87.6 fL (80.0-100.0); Monocytes # (auto) 0.71 K/uL (0.11-0.59); Monocytes % (auto) 8.1 %; Neutrophils # (auto) 5.87 K/uL (1.40-6.50); Neutrophils % (auto) 66.6 %; Platelet Count 152 K/uL (130-400); RDW Coefficient of Variation 13.2 % (11.5-14.5); RDW Standard Deviation 42.2 fL (36.4-46.3); Red Blood Count 4.92 M/uL (4.70-6.10); White Blood Count 8.81 K/ul (4.8-10.8)
[2024-03-09 04:47] LABS: BUN Creatinine Ratio 14.4 (10-20); Creatinine Clr Calc Pharmacy 80.7 ml/min; Magnesium 2.1 mg/dl (1.7-2.4); Phosphorus 3.4 mg/dl (2.5-4.9); Potassium 3.9 mmol/L (3.5-5.1)
[2024-03-09] MEDS: POTASSIUM CHLORIDE / WTR 10 MEQ/100 ML PLCT IV SCH (06:12)
--- NOTE | 2024-03-09 06:45 | Critical Care Progress Note ---
Date of Service March 09, 2024 Assessment & Plan (1) Coronary artery disease: (2) Non-ST elevation [place] (NSTEMI): (3) Tachyarrhythmia: Plan Pt is a 58 yo male with a pmhx of CAD (LAD stent in early ) and HLD who presents to the hospital for 03/08 for NSTEMI, s/p heart cath and LAD re-stent x2 on 03/08. Reason critically ill: Episodes of vtach s/p heart cath 03/08 Non-ST elevation [place] (NSTEMI): Patient initially presented with non-ST elevation [place] and chest pain. Now post cardiac cath where he received 2 drug-eluting stents covering the mid LAD and proximal in-stent restenosis. - Initially admitted to PCU now transferred to ICU following episodes of V. tach after sent - Trending troponin for peak - Follow-up TTE; EF 55-60% without dilation or valvular pathology - Continue Brilinta, ASA, MTP, Statin, Zetia Tachycardic arrhythmia Patient noted to have episodes of possible ventricular tachycardia with longest lasting about 30 seconds. No EKG to confirm But multiple rhythm strips suspicious for V. tach vs a fib. He is asymptomatic through these episodes. - Continue amiodarone drip -Continue beta-alisha -Appreciate cardiology recommendations Coronary artery disease: Continue Brilinta, ASA Atherogenic dyslipidemia: Continue statin Dispo: ICU for close cardiac monitoring Admission and Anticipated Discharge Date Admission Date: March 08, 2024 Supervising Physician Co-Signing Physician Notes Dr. Bustos was resident physician during care of patient. I separately evaluated patient for borges portions of the history and the exam. I was present during the critical portion of medical decision making, and I discussed the case with the resident. I generally agree with the findings and plan. Status post PCI, critical care will sign off Subjective Today, pt states he is feeling fine. No chest pain, SOB, or palpitations noted. He states he is feeling good this morning. No questions or complaints. Review of Systems Review of Systems: All systems reviewed & are unremarkable except as noted in HPI & below Physical Exam Physical Exam: General: Alert and oriented, no acute distress HEENT: Normocephalic, atraumatic, Resp: Lungs clear to auscultation bilaterally, no increased work of breathing Cardio: Regular rate and rhythm, no murmurs GI: Soft and nontender, nondistended, bowel sounds active Skin: Warm, dry, Results & Data Results & Data Vital Signs (Past 12 Hours) Vital Signs Temp Pulse Pulse Resp BP BP Pulse Ox 03/09/24 06:15 68 14 98 03/09/24 06:00 112/71 03/09/24 06:00 112/71 03/09/24 05:57 64 16 98 03/09/24 05:00 65 15 97 03/09/24 05:00 105/69 03/09/24 04:00 105/68 03/09/24 04:00 64 17 96 03/09/24 03:00 115/78 03/09/24 03:00 64 16 96 03/09/24 02:12 68 14 96 03/09/24 02:00 115/70 03/09/24 01:48 66 18 96 03/09/24 01:00 109/77 03/09/24 01:00 64 17 97 03/09/24 00:03 65 16 97 03/09/24 00:00 36.7 C 03/09/24 00:00 134/73 03/09/24 00:00 69 03/08/24 23:48 71 18 95 03/08/24 23:00 133/95 03/08/24 23:00 36.8 C 03/08/24 23:00 133/95 03/08/24 23:00 72 17 96 03/08/24 22:19 36.7 C 03/08/24 22:00 127/88 03/08/24 22:00 76 18 97 03/08/24 21:19 36.9 C 79 18 165/92 H 95 03/08/24 20:19 96 H 18 144/77 H 99 03/08/24 19:19 85 12 118/78 96 O2 Del Method 03/09/24 06:15 03/09/24 06:00 03/09/24 06:00 03/09/24 05:57 03/09/24 05:00 03/09/24 05:00 03/09/24 04:00 03/09/24 04:00 03/09/24 03:00 03/09/24 03:00 03/09/24 02:12 03/09/24 02:00 03/09/24 01:48 03/09/24 01:00 03/09/24 01:00 03/09/24 00:03 03/09/24 00:00 03/09/24 00:00 03/09/24 00:00 03/08/24 23:48 03/08/24 23:00 03/08/24 23:00 03/08/24 23:00 03/08/24 23:00 03/08/24 22:19 03/08/24 22:00 03/08/24 22:00 03/08/24 21:19 Room Air 03/08/24 20:19 Room Air 03/08/24 19:19 Room Air Resident Activity Tracking Resident Involvement: Resident Care Provided Care Provided: Adult Hospital Medicine (1) Coronary artery disease Associated angina: unspecified whether angina present Coronary Disease- Associated Artery/Lesion type: unspecified vessel or lesion type [place] vs. transplanted heart: unspecified whether [place] or transplanted heart Qualified Code(s): I25.10 - Atherosclerotic heart disease of [place] coronary artery without angina pectoris
--- NOTE | 2024-03-09 07:51 | Hospitalist Progress Note ---
Date of Service March 09, 2024 Assessment & Plan (1) Non-ST elevation [place] (NSTEMI): Plan: Harshal is a 58yo man w h/o LAD stenting in the early , who presented with chest pain and dyspnea on exertion. 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 - Per cardiology, has severe residual disease in the R PLB not amenable to PCI; recc at least 2y DAPT, but prefer indefinitely; recc participation in cardiac rehab - TTE 03/09: normal LV fxn, no significant structural or valvular pathology - Long-term GDMT w 81mg aspirin daily, 40mg rosuvastatin daily, and 12.5 mg metoprolol tartrate bid (2) Ventricular tachycardia: Plan: - Initially admitted to PCU, now transferred to ICU following episodes of v tach after cardiac cath - Longest ep ~ 30 seconds - No EKG to confirm But multiple rhythm strips suspicious for V. tach vs a fib - Continue amiodarone drip (currently 300mg q12h) - Continue beta-alisha - Appreciate cardiology recommendations Admission and Anticipated Discharge Date Admission Date: March 08, 2024 Supervising Physician Co-Signing Physician Notes ATTESTATION I also saw the patient and confirmed borges portions of the history and exam. I agree with the impression and plan in the resident documentation, and as summarized below. Upon my exam, the patient was without complaints. He had a short run of V. tach earlier this morning, but similar to previous, he did not note any palpitations or symptoms. EXAM 120/79, 77, 20 Alert and oriented. No distress. Afebrile. Cardiovascular regular rate and rhythm Lungs clear/respirations DATA Labs CBC and BMP are unremarkable Troponin peak 46005 Imaging CXR 03/08 NAD IMPRESSION & PLAN NSTEMI, S/P cath with RUFINA x 2 Post procedure v-tach Remains in ICU this morning Appreciate ethnology teacher and cardiology consultation Discontinue citalopram given recent [place]; either transition to escitalopram 10 mg or sertraline 50 mg upon discharge Will facilitate transfer to telemetry today if remains clinically stable Additional per resident documentation Subjective Pt is doing well today. Denies GORDON, dizziness, SOB, CP, abd pain, or palpitations. He says he is comfortable, eating fine, and looking forward to watching the game on TV. He has no questions or complaints. Review of Systems 2 Review of Systems: As per HPI. Physical Exam 2 Physical Exam: Gen: NAD, WD/WN, resting comfortably HEENT: NCAT, PERRL CV: RRR, no murmur Resp: CTAB, symmetrical chest rise, breathing non-labored Abd: Soft, NT/ND, +BS MSK: Full ROM, no gross deformities Skin: Warm, dry, pink, no rashes or lesions Neuro: AOx3, CN II-XII grossly intact Psych: Mood-affect congruent. Speech pace and content normal. Results & Data Results & Data Vital Signs (Past 12 Hours) Vital Signs Temp Pulse Pulse Resp BP BP Pulse Ox 03/09/24 06:15 68 14 98 03/09/24 06:00 112/71 03/09/24 06:00 112/71 03/09/24 05:57 64 16 98 03/09/24 05:00 65 15 97 03/09/24 05:00 105/69 03/09/24 04:00 105/68 03/09/24 04:00 64 17 96 03/09/24 03:00 115/78 03/09/24 03:00 64 16 96 03/09/24 02:12 68 14 96 03/09/24 02:00 115/70 03/09/24 01:48 66 18 96 03/09/24 01:00 109/77 03/09/24 01:00 64 17 97 03/09/24 00:03 65 16 97 03/09/24 00:00 36.7 C 03/09/24 00:00 134/73 03/09/24 00:00 69 03/08/24 23:48 71 18 95 03/08/24 23:00 133/95 03/08/24 23:00 36.8 C 03/08/24 23:00 133/95 03/08/24 23:00 72 17 96 03/08/24 22:19 36.7 C 03/08/24 22:00 127/88 03/08/24 22:00 76 18 97 03/08/24 21:19 36.9 C 79 18 165/92 H 95 03/08/24 20:19 96 H 18 144/77 H 99 O2 Del Method 03/09/24 06:15 03/09/24 06:00 03/09/24 06:00 03/09/24 05:57 03/09/24 05:00 03/09/24 05:00 03/09/24 04:00 03/09/24 04:00 03/09/24 03:00 03/09/24 03:00 03/09/24 02:12 03/09/24 02:00 03/09/24 01:48 03/09/24 01:00 03/09/24 01:00 03/09/24 00:03 03/09/24 00:00 03/09/24 00:00 03/09/24 00:00 03/08/24 23:48 03/08/24 23:00 03/08/24 23:00 03/08/24 23:00 03/08/24 23:00 03/08/24 22:19 03/08/24 22:00 03/08/24 22:00 03/08/24 21:19 Room Air 03/08/24 20:19 Room Air Laboratory Results 03/09/24 04:21 03/09/24 04:21 Cardiac Enzymes 03/08/24 03/08/24 03/09/24 Range/Units 13:46 15:00 00:39 AST 28 (13-39) U/L Troponin I High Sens 11.1 51.1 H* D 38808.6 H* D (0-20) pg/ml 03/09/24 03/09/24 Range/Units 04:21 12:34 AST (13-39) U/L Troponin I High Sens 84261.9 H* D 35658.3 H* D (0-20) pg/ml Resident Activity Tracking Resident Involvement: Resident Care Provided Care Provided: Adult Hospital Medicine
[2024-03-09] MEDS: EZETIMIBE 10 MG TAB PO SCH (08:08)
[2024-03-09] MEDS: ASPIRIN 81 MG ECTAB PO SCH (08:08)
[2024-03-09] MEDS: ROSUVASTATIN CALCIUM 20 MG TAB PO SCH (08:09)
[2024-03-09] MEDS: CITALOPRAM 20 MG TAB PO SCH (08:09)
--- NOTE | 2024-03-09 08:12 | Billing Data ---
Date of Service March 09, 2024 Coding Level of Care Code 32778 SUB INP/OBS CARE
--- NOTE | 2024-03-09 11:07 | Electrocardiogram Report ---
Test Reason : Blood Pressure : */* mmHG Vent. Rate : 73 BPM Atrial Rate : 73 BPM P-R Int : 164 ms QRS Dur : 92 ms QT Int : 414 ms P-R-T Axes : 67 66 65 degrees QTcB Int : 456 ms Normal sinus rhythm with sinus arrhythmia Normal ECG When compared with ECG of 08-Mar-2024 14:07, Inferolateral STelevation has improved Confirmed by Ben Mahoney ([id number]) on 03/09/2024 11:06:33 AM Referred By: REFERRED SELF Confirmed By: Ben Mahoney
--- NOTE | 2024-03-09 14:50 | Cardiology Progress Note ---
Date of Service March 09, 2024 Assessment & Plan (1) Ventricular tachycardia: Plan: Wide-complex tachycardia most consistent with VT. Also with wide-complex not meeting tachycardia criteria could be AIVR. In either case this is likely secondary to reperfusion and/or the small residual area supplied by the right PLB which is occluded. He will complete the 24-hour protocol for amiodarone drip. Then I would like to increase his beta-alisha dose as tolerated by blood pressure and I would anticipate resolution of his tachy-arrhythmia. (2) Non-ST elevation [place] (NSTEMI): Plan: Status post PCI to the LAD for severe in-stent restenosis. Significant elevation in troponin but no significant wall motion abnormalities on echocardiogram. This is reassuring. He will remain on dual antiplatelet therapy with aspirin and Brilinta. I intend to increase his metoprolol dose and he will also remain on high intensity statin therapy. (3) Atherogenic dyslipidemia: Plan: High risk. Currently on rosuvastatin 40 mg daily and Zetia 10 mg daily. Plan He will likely be ready for stepdown unit tonight. At that same time we will be discontinuing the amiodarone drip and he should receive his oral beta-alisha. Assuming no further issues he will likely be appropriate for discharge tomorrow afternoon. Admission and Anticipated Discharge Date Admission Date: March 08, 2024 Subjective Patient is doing well. He denies any anginal chest pain heaviness or tightness. Also without dyspnea. He was transferred to the ICU secondary to brief episodes of wide-complex tachycardia and he was placed on amiodarone drip after 150 mg bolus. Review of his monitor strips show additional episodes of wide- complex tachycardia but none in the last few hours. He is completely asymptomatic with these brief episodes. He has not gotten out of bed and done much thus far. He voices no other complaints or concerns at this time. Review of Systems Review of Systems: Negative except as per HPI Physical Exam Constitutional: WD/WN, vitals as above Eyes: Extraocular muscle intact. Sclera are anicteric. ENMT: Oral mucosa is pink moist and intact Neck: No JVD Respiratory: Clear to auscultation bilaterally. No wheezing, rhonchi, or rales Cardiovascular: Regular rate and rhythm. Currently sinus rhythm on the monitor. S4 gallop. Do not appreciate any rubs or murmurs. No edema. Musculoskeletal: no cyanosis or clubbing, extremities motor strength 5/5 Radial access site is clean dry and intact. Good distal perfusion. Neurologic: Cognition is intact. Speech is fluent. No focal deficits. Psychiatric: A+Ox3, euthymic affect Results & Data Vital Signs (Past 12 Hours) Vital Signs Pulse Resp BP Pulse Ox 03/09/24 09:00 120/79 03/09/24 08:57 77 20 98 03/09/24 08:03 67 17 98 03/09/24 08:00 121/75 03/09/24 08:00 121/75 03/09/24 07:54 69 19 97 03/09/24 07:00 124/80 03/09/24 07:00 72 12 99 03/09/24 06:15 68 14 98 03/09/24 06:00 112/71 03/09/24 06:00 112/71 03/09/24 05:57 64 16 98 03/09/24 05:00 65 15 97 03/09/24 05:00 105/69 03/09/24 04:00 105/68 03/09/24 04:00 64 17 96 03/09/24 03:00 115/78 03/09/24 03:00 64 16 96 PG Care Time/CCT Total # of Minutes Spent Total Time Spent with Patient: Total time spent is greater than 50% in coordination of care (as documented) at patient's floor/unit and/or counseling patient: Coding Diagnoses Ventricular tachycardia I47.20 Non-ST elevation [place] (NSTEMI) I21.4 Atherogenic dyslipidemia E78.5
[2024-03-09] MEDS: METOPROLOL TARTRATE 25 MG TAB PO SCH (20:33)
[2024-03-09] MEDS: [UNRECOGNIZED DRUG - REMARK] ONE (23:03)
[2024-03-10 04:13] LABS: BUN Creatinine Ratio 13.8 (10-20); Calcium 9.2 mg/dl (8.6-10.3); Creatinine Clr Calc Pharmacy 78.3 ml/min; Phosphorus 3.1 mg/dl (2.5-4.9)
--- NOTE | 2024-03-10 07:33 | Discharge Summary ---
Date of Service March 10, 2024 Admission HPI Per Admitting Provider Harshal Verduzco is a 58 year old male who presents to the ER with upper back pain and chest pain. Symptoms started this morning with a general feeling something was not right. After he visited his father at [facility] it started to get worse especially when he went to clean his car. At that time he started having diaphoresis, nausea and dry heaving and had to sit down. No shortness of breath but he reports his lungs just didn't feel right. Due to the severity of his symptoms and after putting all the pieces together he was concerned about a heart attack therefore called his to bring him to the ER. Admission Exam Per Admitting Provider Constitutional: WD/WN, vitals as above ENMT: external ear and nose normal, oropharynx normal Respiratory: normal respiratory effort, lungs clear to auscultation Cardiovascular: RRR, no murmur, no edema Gastrointestinal (Abdomen): normal bowel sounds, soft, nontender, no hepatosplenomegaly Musculoskeletal: no cyanosis or clubbing, extremities motor strength 5/5 Skin: no rashes, warm and dry Neurologic: moves all extremities and awake; not confused Psychiatric: A+Ox3, euthymic affect Principal Diagnosis NSTEMI Discharge Exam Gen: NAD, WD/WN, resting comfortably HEENT: NCAT, PERRL CV: RRR, no murmur Resp: CTAB, symmetrical chest rise, breathing non-labored Abd: Soft, NT/ND, +BS MSK: Full ROM, no gross deformities Skin: Warm, dry, pink, no rashes or lesions Neuro: AOx3, CN II-XII grossly intact Psych: Mood-affect congruent. Speech pace and content normal. Discharge Data Allergies Allergy/AdvReac Type Severity Reaction Status Date / Time No Known Allergies Allergy Unknown Unverified 06/16/18 15:29 Consultations 03/08/24 14:28 ED Decision to Admit Stat 03/08/24 14:54 Consult Cardiology Stat 03/08/24 16:36 Consult Cardiac Rehabilitation Routine 03/08/24 21:19 Consult Vice President Digital Strategist Routine Procedures Performed Operation Date: 03/08/24 15:00 Actual Procedures p Cineradiography w/Routine Exam - Ranjith Cantor MD, PhD p Cath, Coronaries ONLY (no LV) - Ranjith Cantor MD, PhD p Drug Eluting Stent SGl Vessel - Ranjith Cantor MD, PhD Ordered Studies 03/09/24 04:21 03/10/24 03:31 Chest X-Ray 03/08/24 13:38 XR chest 1V portable CLINICAL HISTORY: Chest pain, nonspecific COMPARISON STUDY: Chest radiograph June 16, 2018. FINDINGS: Mild elevation of the right hemidiaphragm has slightly increased. Lungs are clear. There is no pneumothorax or pleural effusion. Cardiac size is normal. Mediastinal contours are normal. There is no evidence for pulmonary edema. IMPRESSION: No acute cardiopulmonary findings. Electronically signed by: Home Wolf M.D. 03/08/2024 2:15 PM 03/08/24 15:09 CL Cath Imgs for PACS use only Stat Hospital Course (1) Non-ST elevation [place] (NSTEMI): Harshal is a 58yo man w h/o LAD stenting in the early , who presented with chest pain and dyspnea on exertion. - Chest pain on presentation rated 3/10 & radiating to back; a/w diaphoresis, nausea and dry heaving; no syncope, orthopnea, PND, palpitations, or edema leading up to this admission - Given 0.4mg SL nitro & low dose heparin + bolus, in ED - Trop peaked at 24,762 - 2 x EKG w non-ST elevation [place] - CXR w no acute cardiopulmonary findings - Coronary angiography showed severe in-stent restenosis of prox LAD, severe mid-LAD stenosis, and chronic total occlusion of the right posterolateral branch (which filled via right to right collateralization) - Now s/p cardiac cath w placement of 2 drug-eluting stents, covering the mid LAD and proximal in-stent restenosis. Per cardiology, has severe residual disease in the R PLB not amenable to PCI - TTE 03/09 showed normal LV fxn, no significant structural or valvular pathology - GDMT w 81mg aspirin daily, 40mg rosuvastatin daily, and 12.5 mg metoprolol tartrate bid during stay - Cardiology reccs At least 2y, but preferably indefinite, DAPT w 81mg daily aspirin + 90mg bid Brilinta Continue rosuvastatin 40 mg daily and Zetia 10 mg daily Increase metoprolol to 25mg BID Participation in cardiac rehab (2) Ventricular tachycardia: - Initially admitted to PCU, now transferred to ICU following episodes of v tach after cardiac cath - Longest ep ~ 30 seconds == asymptomatic NSVT could be AIVR likely 2/2 reperfusion per cardio - Completed 24h amiodarone drip protocol 03/09 23:00 - Continue beta-alisha - Outpatient close follow-up w cardiology Total Time Total Time Spent Total Time Spent (In Minutes): See attending documentation Discharge Plan Discharge Items Patient Disposition: Home - Self-Care Reason For Visit: NSTEMI Discharge Diagnosis: NSTEMI, v tach Activity: Per Instructions section Non-emergency contact: Primary Care Provider and Dynamite Reclaimer Call non-emergency contact if: you have any medication questions, your symptoms worsen and your pain is concerning for you Follow-up/Referrals: Kalpesh Fong MD [Primary Care Provider] - Diet: Regular and Heart Healthy Addtl Attending Provider Instructions: You were admitted to the hospital for chest pain and shortness of breath with exertion that was severe and not relieved by usual measures. Coronary angiography showed severe restenosis of the stent in your LAD from years ago, as well as severe mid-LAD stenosis. You had 2 new drug-eluting stents placed in these locations The procedure went well; however, you subsequently had brief episodes of a concerning arrhythmia called ventricular tachycardia. You were transferred to the ICU and put on an IV drip of amiodarone to treat this particular arrhythmia. When you finished the 24-hour regimen of that medication, and you remained asymptomatic, you were deemed safe for discharge with close outpatient follow-up with your primary care and cardiology. Please bring this discharge summary with you to your next office appointment so that your provider can review it at that time. Your medication list has been reviewed and reconciled, and an updated list is included with your hospital discharge paperwork. Please review this list closely, and make note of any changes. We sent a new medication called Brilinta to the [facility] pharmacy in [place]. Take Brilinta 90 mg, one tablet, twice a day We also sent over a new prescription for metoprolol tartrate. Take your metoprolol 25 mg, one tablet, twice a day Stop taking your Celexa. We are starting you on a different medication from the same class called Zoloft (sertraline). Take sertraline 50 mg, one tablet, every morning. Continue your Crestor (rosuvastatin), Zetia (ezetimibe), and aspirin as usual. Take your medications as instructed; do not skip a dose. Follow-up appointments: Make a follow-up appointment with your PCP within the next week. It is very important that you follow up with them shortly after discharge from the hospital. Make a follow-up appointment with your ultrasound coordinator within the next 2 weeks for ongoing care of your cardiac history and the arrhythmias after your catheterization. Keep all your follow-up appointments as already scheduled. If you cannot make an appointment, notify your provider. You may call [phone] and ask to leave a message for Dr. Renteria if you have any issues filling your new prescriptions. Contact your PCP or ultrasound coordinator if you have any questions about your medications or mild chest pain or shortness of breath. Call [phone] or go to the ER if you experience any worsening symptoms that are concerning for you, any sudden and severe abdominal pain or nausea/vomiting, or palpitations and lightheadedness. Thank you for allowing us to participate in your care. Pending Studies at Discharge: No Stand-Alone Forms: [facility], Smoking Cessation Medications and DC Order Prescriptions: New metoprolol tartrate 25 mg Tablet 25 mg PO BID 30 Days Qty: 60 0RF Brilinta 90 mg Tablet 90 mg PO BID 30 Days Qty: 60 0RF sertraline 50 mg tablet 50 mg PO DAILY Qty: 30 0RF Continued aspirin [Aspir-Low] 81 mg Tablet,Delayed Release (Dr/Ec) 81 mg PO DAILY ezetimibe [Zetia] 10 mg tablet 10 mg PO DAILY rosuvastatin [Crestor] 40 mg tablet 40 mg PO DAILY Discontinued citalopram [Celexa] 20 mg tablet 20 mg PO DAILY Discharge Orders: Discharge Order (Routine); Ordered 03/10/24 Ordered By: Param Renteria Admission Data Admit Date/Time: 03/08/24 15:14 Attending Provider: Zack Steen Admit Provider: Lit Coello Primary Care Provider: Kalpesh Fong Other Providers: Lit Coello; Steven Castaneda; Alli Lerma Other Interventions: Discharge Summary Assessment (RN) Last Done: 03/10/24 12:16 Supervising Physician Co-Signing Physician Notes ATTESTATION I also saw the patient and confirmed borges portions of the history and exam. I agree with the impression and plan in the resident documentation, and as summarized below. Upon my exam, the patient was without complaints. Anticipated discharge this afternoon. EXAM 124/84, 65, 16, 96% Alert and oriented. No distress. Afebrile. Cardiovascular regular rate and rhythm Lungs clear/respirations DATA Labs CBC and BMP are unremarkable IMPRESSION & PLAN NSTEMI, S/P cath with RUFINA x 2 Post procedure v-tach Appreciate cardiology consultation Discontinue citalopram given recent [place]; recommend sertraline 50 mg upon discharge. Discussed with patient. He has had family members who did not do well with sertraline, but discussed that could be dose-related If struggles with sertraline, consider escitalopram 10 mg in furture Cardiology recommendations and medications as noted Additional per resident documentation Resident Activity Tracking Resident Involvement: Resident Care Provided Care Provided: Adult Hospital Medicine
== END 2024-03-10 13:44 | disposition home or self-care (01) | DRG 322 ==
LOC: ED 13:24 → 1E 15:07 → 2E 15:14 → SUATTDRO 15:14 → 1E 21:19
PROC: CLB.CCO (2024-03-08 15:00)